=== PATIENT | female | born 1975 | race Two or more races ===

== ENCOUNTER 2019-06-11 22:13 | Emergency (ER) | payer SELFPAY ==
[~2019-06-11] VITALS: Ht 160 cm; Wt 77.1 kg
[~2019-06-11 22:13] MED LIST: ASPIRIN81 MG ORAL; PHENERGAN25 M3 GT; REGLAN10 MG ORAL; UNOBMED
--- NOTE | 2019-06-11 22:30 | NUR ---
ED Nurse Note: ambulated to ed c/o reccurent fever and lower back pain x 1 week. patient ao4. nad. vss. ambulates with steady gait. changed into gown; attached to monitor. will continue to monitor.
--- NOTE | 2019-06-11 22:45 | NUR ---
ED Nurse Note: iv access established. blood and urine collected; sent down to lab.
[2019-06-11 23:00] VITALS: BP 130/82
[2019-06-11 23:27] LABS: BASOPHILS % (AUTO) 0.9 % (0.0-2.0); EOSINOPHILS % (AUTO) 0.6 % (0.0-3.0); HEMATOCRIT 33.1 % (37.0-47.0); HEMOGLOBIN 12.6 G/DL (12.0-16.0); LYMPHOCYTES % (AUTO) 8.5 % (20.0-45.0); MEAN CORPUSCULAR VOLUME 91 FL (80-99); MONOCYTES % (AUTO) 10.8 % (1.0-10.0); NEUTROPHILS % (AUTO) 79.3 % (45.0-75.0); PLATELET COUNT 314 K/UL (150-450); RED BLOOD COUNT 3.64 M/UL (4.20-5.40); WHITE BLOOD COUNT 15.1 K/UL (4.8-10.8)
[2019-06-11 23:29] LABS: APPEARANCE,URINE CLOUDY; BILIRUBIN, URINE NEGATIVE (NEGATIVE); GLUCOSE, URINE (UA) NEGATIVE (NEGATIVE); KETONES,URINE 2+ (NEGATIVE); LEUKOCYTE ESTERASE ,URINE 2+ (NEGATIVE); NITRITE,URINE POSITIVE (NEGATIVE); PH,URINE 6 (4.5-8.0); PROTEIN,URINE 3+ (NEGATIVE); UROBILINOGEN,URINE 1 MG/DL (0.0-1.0)
[2019-06-11] MEDS ORDERED: HYDROmorphone 1mg/ml Carpuject IVP ONE (23:30)
[2019-06-11 23:32] LABS: COLOR,URINE YELLOW
[2019-06-11 23:38] LABS: ALANINE AMINOTRANSFERASE 46 U/L (12-78); ALBUMIN 2.1 G/DL (3.4-5.0); ALBUMIN/GLOBULIN RATIO 0.5 (1.0-2.7); ALKALINE PHOSPHATASE 135 U/L (46-116); ANION GAP 12 mmol/L (5-15); ASPARTATE AMINO TRANSFERASE 48 U/L (15-37); BILIRUBIN,TOTAL 0.3 MG/DL (0.2-1.0); BLOOD UREA NITROGEN 8 mg/dL (7-18); CALCIUM 8.4 MG/DL (8.5-10.1); CARBON DIOXIDE 27 MMOL/L (21-32); CHLORIDE 100 MMOL/L (98-107); CREATININE 1.1 MG/DL (0.55-1.30); SODIUM 139 MMOL/L (136-145)
[2019-06-11 23:41] LABS: POTASSIUM 2.4 MMOL/L (3.5-5.1)
[2019-06-11] MEDS ORDERED: cefTRIAXone 2 GM in NS 55 ML IVPB ONE (23:45)
--- NOTE | 2019-06-11 23:51 | Emergency Room Report ---
History of Present Illness General Chief Complaint: Abdominal Pain Source: Patient Present Illness HPI This a 44-year-old female with a history of pancreatitis. She presents with complaint abdominal pain with fever and chills with nausea and vomiting. She says she been having fever for the last week. T-max of 102. She has b/l flank pain but worse on the right. it radiates to the groin. Does have some increased urination. Has been going on for almost 2 weeks. Has nausea and vomiting. Pain is 10 out of 10. Worse with movement. Worse with urination. No diarrhea. Vomiting is nonbloody nonbilious. Allergies: Coded Allergies: CIPROFLOXACIN (Unverified Allergy, Unknown, 03/26/14) MORPHINE (Unverified Allergy, Unknown, 03/26/14) PENICILLINS (Unverified Allergy, Unknown, 03/26/14) ONDANSETRON (Verified Adverse Reaction, Unknown, HEART PALPITATIONS, ) Uncoded Allergies: zofran (Adverse Reaction, Unknown, 04/16/14) heart palpatation Patient History Past Medical History: see triage record, old chart reviewed, HTN, CAD Past Surgical History: val, hysterectomy, other Pertinent Family History: none Social History: Denies: smoking Last Menstrual Period: 2009 Now: No : 4 Para: 1 Immunizations: other Reviewed Nursing Documentation: PMH: Agreed; PSxH: Agreed Nursing Documentation-PMH Hx Cardiac Problems: Yes - [place] x 2018; stent LAD Hx Hypertension: Yes Hx Cancer: No Hx Gastrointestinal Problems: Yes - gall baldder removed History Of Psychiatric Problem: Yes - insomnia Hx Seizures: No - HYSTERECTOMY 2009 Hx Tremors: Yes - hands Hx Dizziness: Yes - when standing Hx Headaches: Yes Hx Weakness: Yes Hx Fatigue: Yes Review of Systems Constitutional: Reports: fever Eye: Denies: eye pain, blurred vision ENT: Denies: ear pain, nose congestion, throat swelling Respiratory: Denies: cough, shortness of breath Cardiovascular: Denies: chest pain, palpitations Gastrointestinal: Reports: abdominal pain, nausea, vomiting; Denies: diarrhea Genitourinary: Reports: dysuria Musculoskeletal: Reports: back pain; Denies: joint pain Skin: Denies: rash Neurological: Denies: headache, numbness Endocrine: Denies: increased thirst, increased urine Hematologic/Lymphatic: Denies: easy bruising All Other Systems: negative except mentioned in HPI Physical Exam Vital Signs Date Time Temp Pulse Resp B/P (MAP) Pulse Ox O2 Delivery O2 Flow Rate FiO2 06/11/19 22:23 99.1 114 18 130/82 (98) 94 Room Air Vitals unremarkable Sp02 EP Interpretation: reviewed, normal General Appearance: well appearing, no apparent distress, alert Head: normocephalic, atraumatic Eyes: bilateral eye PERRL, bilateral eye EOMI ENT: hearing grossly normal, normal pharynx Neck: full range of motion, supple, no meningismus Respiratory: chest non-tender, lungs clear, normal breath sounds Cardiovascular #1: regular rate, rhythm, no murmur Gastrointestinal: normal bowel sounds, non tender, no mass, no organomegaly, no bruit, non-distended Genitourinary: CVA tenderness (R) Musculoskeletal: back normal, normal range of motion, gait/station normal Psychiatric: mood/affect normal Medical Decision Making Diagnostic Impression: Primary Impression: Abdominal pain Qualified Codes: R10.84 - Generalized abdominal pain Additional Impressions: Pyelonephritis Ureteral calculus, left Acute hypokalemia ER Course Patient presents with fever and flank pain. CT scan showed left pyelonephritis and a 2 mm left ureteral calculus. Most of her pain however is on the right side. I discussed the case with the radiologist and he said that appendix is normal. He did not see any finding on the right side. Because of the infected ureteral stone, I recommend patient be admitted to the hospital for IV antibiotics and urology consultation. Patient said that she is traveling tomorrow and does not want to stay in the hospital. She understand the risk of leaving. This includes but not limited to sepsis, kidney failure, worsening infection and possible . She wanted to try outpatient therapy first. Her significant other is also at bedside and they discussed this and elected to be discharged. CT/MRI/US Diagnostic Results CT/MRI/US Diagnostic Results : Imaging Test Ordered: CT abdomen and pelvis Impression Read by radiologist. Left perinephric stranding with mild fullness of the collecting system. 2 mm calculus in the midportion of the left ureter. Normal appendix Last Vital Signs Date Time Temp Pulse Resp B/P (MAP) Pulse Ox O2 Delivery O2 Flow Rate FiO2 06/11/19 22:23 99.1 114 18 130/82 (98) 94 Room Air Status: improved Disposition: AGAINST MEDICAL ADVICE Condition: Stable Scripts Tamsulosin HCl (Flomax) 0.4 Mg Cap.er.24h 0.4 MG ORAL DAILY, #30 CAP Prov: Thom Blank MD 06/12/19 Hydrocodone Bit/Acetaminophen 5-325* (NORCO 5-325*) 1 Each Tablet 1 TAB ORAL Q6H PRN for For Pain, #20 TAB 0 Refills Prov: Thom Blank MD 06/12/19 Cephalexin* (KEFLEX*) 500 Mg Capsule 500 MG ORAL TID, #30 CAP Prov: Thom Blank MD 06/12/19 Additional Instructions: Increase fluids. Follow-up with your doctor within a week for repeat blood testing. The potassium level was low. You will need a referral to see a urologist. You may need a stent if kidney stone does not pass. You have an infected kidney stone. My recommendation is to be admitted to the hospital for IV antibiotics and urology consultation. You elected to be discharged instead. This may increase your risk for sepsis, kidney failure and even as a possible complication. Return for fever, increasing pain, vomiting or worsening of symptoms. Thom Blank MD Jun 11, 2019 23:51
--- NOTE | 2019-06-12 00:15 | Diagnostic Imaging Report ---
INDICATION: Abdominal pain TECHNIQUE: Continuous helical transaxial imaging of the abdomen and pelvis was obtained from the lung bases to the pubic symphysis. No intravenous contrast was administered. Coronal 2-D reformats were also obtained. Automatic Exposure Control was utilized. Total Dose length Product (DLP): 1538.[address] Dose Index Volume (CTDIvol): 26.4 mGy Comparison: none FINDINGS: Lungs: Trace left pleural effusion demonstrated. Mild posterior basal atelectasis noted bilaterally. Liver: The liver is prominent in size measuring about 19 cm in the craniocaudal dimension. There is mild surface nodularity as well. Diffuse low-attenuation of the liver noted consistent with fatty infiltration. Gallbladder/biliary system: Cholecystectomy noted. No biliary ductal dilatation is identified.. Spleen: Unremarkable Pancreas: Unremarkable Kidneys: There is some mild perinephric stranding which is nonspecific. Mild pelvocaliectasis in the left kidney noted. The ureters are not dilated. Perinephric stranding may be slightly worse in the left kidney especially in the upper pole. Please correlate clinically for pyelonephritis. Study is limited in this regard due to the nonadministration of intravenous contrast.. The other consideration is a recently passed stone from the left kidney. There are multiple small nodes in the area of the left renal hilum. Adrenal glands: The left adrenal gland appears mildly prominent but retains an adreniform shape. Bowel: Bowel gas pattern appears nonobstructive. Appendix is normal. Bladder: Unremarkable Aorta/IVC: Trace mural calcium noted within the distal aorta. Peritoneum: There is minimal free fluid demonstrated within the pelvis surrounding small bowel loops of the uterus.. Bones: Unremarkable IMPRESSION: Left pelvocaliectasis and perinephric stranding. Consider pyelonephritis versus recently passed stone. No obstructing stone seen at this time. Ureter is nondilated. This is discrepant with the preliminary results from [facility] reporting a "2 mm calculus in the midportion of the left ureter ". This is not appreciated on my evaluation. Fatty liver with enlargement and mild surface nodularity. Trace left pleural fluid. Bilateral basilar atelectasis. Adrenal hyperplasia. Status post cholecystectomy Minimal atherosclerotic disease Trace free fluid in the pelvis Note: Evaluation of solid organs is limited on non contrast imaging. The CT scanner at [facility] is accredited by the [employer] and the scans are performed using dose optimization techniques as appropriate to a performed exam including Automatic Exposure control.
[2019-06-12] MEDS ORDERED: FLOMAX0.4 MG ORAL (01:20)
[2019-06-12] MEDS ORDERED: CEPHALEXIN500 MG ORAL (01:20)
[2019-06-12] MEDS ORDERED: NORCO 5-325 TA1 EACH ORAL (01:20)
--- NOTE | 2019-06-12 01:28 | NUR ---
ER DISCHARGE NOTE: Patient is cleared to be discharged per ERMD, pt is aox4, on room air, with stable vital signs. accompanied by family member. pt was given dc and prescription instructions, pt was able to verbalize understanding, pt id band and iv site removed without complications. pt is able to ambulate with steady gait. pt took all belongings.
[2019-06-12 01:30] VITALS: BP 130/82
== END 2019-06-12 01:30 | disposition left against medical advice (07) ==
LOC: EMR 23:59 → CANBEDREQ 06-12 01:39
DX: N12 Tubulo-interstitial nephritis, not specified as acute or chronic (principal); N20.1 Calculus of ureter; R10.84 Generalized abdominal pain; E87.6 Hypokalemia; I25.2 Old myocardial infarction; I25.10 Atherosclerotic heart disease of native coronary artery without angina pectoris; Z95.5 Presence of coronary angioplasty implant and graft; Z90.710 Acquired absence of both cervix and uterus; Z90.49 Acquired absence of other specified parts of digestive tract; Z88.1 Allergy status to other antibiotic agents; Z88.0 Allergy status to penicillin; Z88.5 Allergy status to narcotic agent; Z88.8 Allergy status to other drugs, medicaments and biological substances
CPT/HCPCS: 36415; 74176; 80053; 81003; 83605; 85025; 86710; 87040; 87086; 87181; 96365; 96366; 96368; 99284; J0696; J1170; J3480; J7030; J8499

== ENCOUNTER 2019-06-25 16:08 | Emergency (ER) | payer SELFPAY ==
[~2019-06-25] VITALS: Ht 160 cm; Wt 77.1 kg
[~2019-06-25 16:08] MED LIST changes: +CEPHALEXIN500 MG ORAL; +FLOMAX0.4 MG ORAL; +NORCO 5-325 TA1 EACH ORAL
[2019-06-25 16:40] VITALS: BP 132/85
--- NOTE | 2019-06-25 16:50 | Emergency Room Report ---
History of Present Illness General Chief Complaint: Pain Source: Patient Present Illness HPI Disclaimer: Please note that this report is being documented using DRAGON technology. This can lead to erroneous entry secondary to incorrect interpretation by the dictating instrument. HPI: This is a 44-year-old female history of CAD presenting for evaluation of flank pain. She was in the emergency department approximately 2 weeks ago diagnosed with a 2 mm left ureteral calculus and urinary tract infection. She was treated with Keflex and completed the entire treatment course. Cultures on the bacteria grew E. coli which was pansensitive to antibiotics tested. Patient states her fever and dysuria improved. She continued to complain of aching bilateral flank pain. 2 days ago she believes she saw a stone in the toilet as she was urinating and may have passed this 2 mm stone. She denies any fever, dysuria, hematuria, vaginal bleeding, vaginal discharge. She notes a mild diarrhea without vomiting or nausea. No other symptoms reported at this time. The appendix was normal on her CT scan of last visit. CT also showed some left perinephric stranding with mild fullness in the collecting system. PMH: CAD, hypertension PSH: Stenting Allergies: Ciprofloxacin, morphine, tamsulosin, Zofran, penicillin Social Hx: None reported Allergies: Coded Allergies: CIPROFLOXACIN (Unverified Allergy, Unknown, 03/26/14) MORPHINE (Unverified Allergy, Unknown, 03/26/14) PENICILLINS (Unverified Allergy, Unknown, 03/26/14) ONDANSETRON (Verified Adverse Reaction, Unknown, HEART PALPITATIONS, ) Uncoded Allergies: zofran (Adverse Reaction, Unknown, 04/16/14) heart palpatation Patient History Now: No Nursing Documentation-PMH Hx Cardiac Problems: Yes - [place] (2) Hx Hypertension: Yes Hx Cancer: No Hx Gastrointestinal Problems: Yes - gall baldder removed Hx Seizures: No - HYSTERECTOMY 2010 Hx Tremors: Yes - hands Hx Dizziness: Yes - when standing Hx Headaches: Yes Hx Weakness: Yes Hx Fatigue: Yes Review of Systems All Other Systems: negative except mentioned in HPI Physical Exam Vital Signs Date Time Temp Pulse Resp B/P (MAP) Pulse Ox O2 Delivery O2 Flow Rate FiO2 06/25/19 16:30 98.4 112 24 132/85 (101) 94 Room Air General: Awake and alert, no acute distress, appears comfortable HEENT: NC/AT. EOMI. Cardiovascular: Tachycardic. S1 and S2 normal. No murmur appreciated Resp: Normal work of breathing. No cough, wheezing or crackles appreciated Abdomen: Abdomen is soft, nondistended. Nontender Skin: Intact. No abrasions, laceration or rash over the exposed skin MSK: Normal tone and bulk. Moving all extremities. No obvious deformity. Neuro: Awake and alert. Mentating appropriately. Back/Spine: No midline tenderness in the cervical, thoracic or lumbosacral spine. There is left-sided and right-sided flank tenderness Medical Decision Making Diagnostic Impression: Primary Impression: UTI (urinary tract infection) ER Course 44-year-old female presents for evaluation of bilateral flank pain after being treated for infected kidney stone and urinary tract infection. She is completed the antibiotic course which and the bacteria returned pansensitive to antibiotics. She believes she passed a stone yesterday. May be experiencing continued renal colic or incomplete treatment of the infection. Will repeat labs. Blood cultures were negative at that time. She is otherwise well- appearing. Laboratory Tests Test 06/25/19 16:49 06/25/19 17:05 Urine Color Yellow Urine Appearance Slightly cloudy Urine pH 5 (4.5-8.0) Urine Specific [place] 1.015 (1.005-1.035) Urine Protein Negative (NEGATIVE) Urine Glucose (UA) Negative (NEGATIVE) Urine Ketones Negative (NEGATIVE) Urine Blood Negative (NEGATIVE) Urine Nitrite Negative (NEGATIVE) Urine Bilirubin Negative (NEGATIVE) Urine Urobilinogen Normal MG/DL (0.0-1.0) Urine Leukocyte Esterase 1+ (NEGATIVE) H Urine RBC 0-2 /HPF (0 - 2) Urine WBC 10-15 /HPF (0 - 2) H Urine Squamous Epithelial Cells Many /LPF (NONE/OCC) H Urine Bacteria Moderate /HPF (NONE) H White Blood Count 6.8 K/UL (4.8-10.8) Red Blood Count 4.27 M/UL (4.20-5.40) Hemoglobin 13.6 G/DL (12.0-16.0) Hematocrit 41.9 % (37.0-47.0) Mean Corpuscular Volume 98 FL (80-99) Mean Corpuscular Hemoglobin 31.8 PG (27.0-31.0) H Mean Corpuscular Hemoglobin Concent 32.4 G/DL (32.0-36.0) Red Cell Distribution Width 16.2 % (11.6-14.8) H Platelet Count 448 K/UL (150-450) Mean Platelet Volume 6.9 FL (6.5-10.1) Neutrophils (%) (Auto) 44.6 % (45.0-75.0) L Lymphocytes (%) (Auto) 45.6 % (20.0-45.0) H Monocytes (%) (Auto) 5.0 % (1.0-10.0) Eosinophils (%) (Auto) 2.9 % (0.0-3.0) Basophils (%) (Auto) 2.0 % (0.0-2.0) Sodium Level 143 MMOL/L (136-145) Potassium Level 4.6 MMOL/L (3.5-5.1) Chloride Level 105 MMOL/L (98-107) Carbon Dioxide Level 23 MMOL/L (21-32) Anion Gap 15 mmol/L (5-15) Blood Urea Nitrogen 12 mg/dL (7-18) Creatinine 1.2 MG/DL (0.55-1.30) Estimate Glomerular Filtration Rate 48.8 mL/min (>60) Glucose Level 93 MG/DL (74-106) Calcium Level 8.7 MG/DL (8.5-10.1) Total Bilirubin 0.2 MG/DL (0.2-1.0) Aspartate Amino Transferase (AST) 36 U/L (15-37) Alanine Aminotransferase (ALT) 35 U/L (12-78) Alkaline Phosphatase 103 U/L (46-116) Total Protein 7.1 G/DL (6.4-8.2) Albumin 3.1 G/DL (3.4-5.0) L Globulin 4.0 g/dL Albumin/Globulin Ratio 0.8 (1.0-2.7) L Reevaluation Time: 17:58 Last Vital Signs Date Time Temp Pulse Resp B/P (MAP) Pulse Ox O2 Delivery O2 Flow Rate FiO2 06/25/19 16:30 98.4 112 24 132/85 (101) 94 Room Air Reevaluation Impression White count, hemoglobin, chemistry within normal limits. Urinalysis shows 1+ leukocyte esterase 10-15 white cells and moderate bacteria though there are many squamous cells. This may represent a contaminated sample however given the patient's ongoing symptoms no mostly may also be an incompletely treated urinary tract infection. This could be because the patient had not passed the stone until 2 days ago when she believes she saw sediment in the bowl after urinating. I discussed a repeat CT scan to make sure the stones were gone and no further source of infection were there however the patient decided that since she has had so many CT scans in her life she would forego the radiation this time and try again outpatient follow-up. Will switch to Bactrim. Culture shows sensitivity. She will follow-up with PMD and return with new or worsening symptoms. Disposition: HOME, SELF-CARE Condition: Stable Scripts Trimethoprim/Sulfamethoxazole 160/800* (BACTRIM DS TABLET*) 1 Each Tablet 1 TAB ORAL Q12H for 14 Days, #28 TAB 0 Refills Prov: Dieter Pruitt MD 06/25/19 Hydrocodone Bit/Acetaminophen 5-325* (NORCO 5-325*) 1 Each Tablet 1 TAB ORAL Q6H PRN for For Pain, #10 TAB 0 Refills Prov: Dieter Pruitt MD 06/25/19 Dieter Pruitt MD Jun 25, 2019 16:50
[2019-06-25 17:00] LABS: APPEARANCE,URINE SLIGHTLY CLOUDY; BILIRUBIN, URINE NEGATIVE (NEGATIVE); GLUCOSE, URINE (UA) NEGATIVE (NEGATIVE); KETONES,URINE NEGATIVE (NEGATIVE); LEUKOCYTE ESTERASE ,URINE 1+ (NEGATIVE); NITRITE,URINE NEGATIVE (NEGATIVE); PH,URINE 5 (4.5-8.0); PROTEIN,URINE NEGATIVE (NEGATIVE); UROBILINOGEN,URINE NORMAL MG/DL (0.0-1.0)
[2019-06-25] MEDS ORDERED: Ketorolac 30mg Inj IV ONE (17:00)
[2019-06-25 17:10] LABS: COLOR,URINE YELLOW
[2019-06-25 17:34] LABS: EOSINOPHILS % (AUTO) 2.9 % (0.0-3.0); HEMATOCRIT 41.9 % (37.0-47.0); HEMOGLOBIN 13.6 G/DL (12.0-16.0); LYMPHOCYTES % (AUTO) 45.6 % (20.0-45.0); MEAN CORPUSCULAR VOLUME 98 FL (80-99); NEUTROPHILS % (AUTO) 44.6 % (45.0-75.0); PLATELET COUNT 448 K/UL (150-450); RED BLOOD COUNT 4.27 M/UL (4.20-5.40); RED CELL DISTRIBUTION WIDTH 16.2 % (11.6-14.8); WHITE BLOOD COUNT 6.8 K/UL (4.8-10.8)
[2019-06-25 17:41] LABS: ANION GAP 15 mmol/L (5-15); BLOOD UREA NITROGEN 12 mg/dL (7-18); CALCIUM 8.7 MG/DL (8.5-10.1); CARBON DIOXIDE 23 MMOL/L (21-32); CHLORIDE 105 MMOL/L (98-107); CREATININE 1.2 MG/DL (0.55-1.30); POTASSIUM 4.6 MMOL/L (3.5-5.1); SODIUM 143 MMOL/L (136-145)
[2019-06-25 17:45] LABS: ALANINE AMINOTRANSFERASE 35 U/L (12-78); ALBUMIN 3.1 G/DL (3.4-5.0); ALBUMIN/GLOBULIN RATIO 0.8 (1.0-2.7); ALKALINE PHOSPHATASE 103 U/L (46-116); ASPARTATE AMINO TRANSFERASE 36 U/L (15-37); BILIRUBIN,TOTAL 0.2 MG/DL (0.2-1.0)
[2019-06-25] MEDS ORDERED: NORCO 5-325 TA1 EACH ORAL (17:54)
[2019-06-25] MEDS ORDERED: BACTRIM DS TAB1 EAC1 ORAL (17:54)
[2019-06-25 18:00] VITALS: BP 132/85
--- NOTE | 2019-06-25 18:00 | NUR ---
ED Nurse Note: Patient is cleared to be discharged per ERMD, pt is aox4, on room air, with stable vital signs. pt was given dc and prescription instructions, pt was able to verbalize understanding, pt id band and iv site removed without complications. pt is able to ambulate with steady gait. pt took all belongings.
== END 2019-06-25 18:00 | disposition home or self-care (01) ==
LOC: EMR 17:40
DX: N39.0 Urinary tract infection, site not specified (principal); I11.9 Hypertensive heart disease without heart failure; Z95.5 Presence of coronary angioplasty implant and graft; Z88.6 Allergy status to analgesic agent; Z88.0 Allergy status to penicillin; Z90.710 Acquired absence of both cervix and uterus; I25.2 Old myocardial infarction; Z90.49 Acquired absence of other specified parts of digestive tract; Z88.8 Allergy status to other drugs, medicaments and biological substances
CPT/HCPCS: 36415; 80053; 81003; 85025; 87086; 96374; 99284; J1885